=== PATIENT | male | born 1955 | race Two or more races ===

== ENCOUNTER 2021-02-27 07:47 | Outpatient (CLI) | payer OTHER | END 2021-02-27 07:53 | disposition home or self-care (01) | LOC: NUCLEAR 07:47 | PROVIDERS: ATTEND Internal Medicine Cardiovascular Disease | DX: I20.9 Angina pectoris, unspecified (principal) | CPT/HCPCS: 78452; 93017; A9500 ==

== ENCOUNTER 2021-08-20 07:11 | Outpatient (CLI) | payer OTHER | END 2021-08-20 07:15 | disposition home or self-care (01) | LOC: TOM 07:11 | DX: K42.9 Umbilical hernia without obstruction or gangrene (principal); R10.10 Upper abdominal pain, unspecified ==

== ENCOUNTER 2021-09-11 07:12 | Outpatient (CLI) | payer OTHER | END 2021-09-11 07:25 | disposition home or self-care (01) | LOC: TOM 07:12 | DX: Z12.11 Encounter for screening for malignant neoplasm of colon (principal) ==

== ENCOUNTER 2023-02-24 07:19 | Outpatient (CLI) | payer OTHER | END 2023-02-24 07:20 | disposition home or self-care (01) | LOC: NUCLEAR 07:19 | DX: E05.20 Thyrotoxicosis with toxic multinodular goiter without thyrotoxic crisis or storm (principal) | CPT/HCPCS: 78014; A9512 ==

== ENCOUNTER 2025-07-17 11:02 | Outpatient (CLI) | payer OTHER ==
[2025-07-17 12:04] LABS: CREATININE SERUM 0.71 mg/dL (0.70-1.30); GFR 110.0
== END 2025-07-17 11:07 | disposition home or self-care (01) ==
LOC: LAB 11:02
DX: E11.9 Type 2 diabetes mellitus without complications (principal)

== ENCOUNTER 2025-07-18 07:09 | Outpatient (CLI) | payer OTHER | END 2025-07-18 07:17 | disposition home or self-care (01) | LOC: TOM 07:09 | DX: R22.2 Localized swelling, mass and lump, trunk (principal) | CPT/HCPCS: 71260; Q9965 ==